=== PATIENT | female | born 2000 | race Native Hawaiian/Other Pacific Islander ===

== ENCOUNTER 2018-02-17 18:18 | Outpatient (CLI) | payer MEDICAID ==
[~2018-02-17] VITALS: Ht 160 cm; Wt 63.0 kg
[2018-02-17 18:45] VITALS: BP 110/65
[2018-02-17] MEDS ORDERED: LIDOCAINE 1% INJ 50 ML (XYLOCAINE) VIAL IJ ONE (19:45)
[2018-02-17] MEDS ORDERED: cefTRIAXone 1 GM (ROCEPHIN) VIAL IM NR (19:45)
[2018-02-17] MEDS ORDERED: LIDOCAINE 1% INJ 20 ML 20 ML VIAL ONE (19:53)
[2018-02-17] MEDS ORDERED: LIDOCAINE 1% INJ 20 ML 20 ML VIAL INJ ONE (20:00)
--- NOTE | 2018-02-18 19:20 | Physician Query-Final Dx ---
NEYDA JIMENEZ 02/18/18 1920: Clinic Account Progress/Dx Physician Query: Please give diagnosis Date of Service Feb 17, 2018 at 18:18 JESSIE COLLADO DO 02/18/18 2202: Clinic Account Progress/Dx DIAGNOSIS: Diagnosis 35 weeks Gestation Vaginal bleeding in UTI complicating in third trimester NEYDA JIMENEZ Feb 18, 2018 19:20 JESSIE COLLADO DO Feb 18, 2018 22:02
== END 2018-02-17 20:15 | disposition home or self-care (01) ==
LOC: WSo 18:18 → LDRP 18:20 → WSo 20:15
PROVIDERS: ATTEND Family Medicine
DX: O46.93 Antepartum hemorrhage, unspecified, third trimester (principal); O23.43 Unspecified infection of urinary tract in pregnancy, third trimester; Z3A.35 35 weeks gestation of pregnancy
CPT/HCPCS: 87088; 96372; 99213

== ENCOUNTER 2018-03-14 14:27 | Inpatient (IN) | payer MEDICAID ==
[~2018-03-14] VITALS: Ht 160 cm; Wt 64.0 kg
[2018-03-14] VITALS (14 sets, daily range): BP systolic 102–137; BP diastolic 58–81
[2018-03-14] MEDS ORDERED: MINERAL OIL CONCENTRATE 99.9% 15 ML UDC TOP PRN (15:15)
[2018-03-14 15:52] LABS: BASOPHILS % (AUTO) 0 % (0-10); EOSINOPHILS # (AUTO) 0.2 10^3/uL (0.0-0.3); EOSINOPHILS % (AUTO) 2 % (0-10); HEMATOCRIT 34 % (35-52); HEMOGLOBIN 11.3 G/DL (11.5-16.0); LYMPHOCYTES # (AUTO) 2.7 X 10^3 (1.0-4.0); LYMPHOCYTES % (AUTO) 27 % (12-44); MEAN CORPUSCULAR HEMOGLOBIN 27 PG (25-34); MEAN CORPUSCULAR HGB CONC 33 G/DL (32-36); MEAN CORPUSCULAR VOLUME 82 FL (80-99); MEAN PLATELET VOLUME 10.8 FL (7.4-10.4); MONOCYTES # (AUTO) 0.7 X 10^3 (0.0-1.0); MONOCYTES % (AUTO) 7 % (0-12); NEUTROPHILS # (AUTO) 6.4 X 10^3 (1.8-7.8); NEUTROPHILS % (AUTO) 63 % (42-75); PLATELET COUNT 207 10^3/uL (130-400); RED BLOOD COUNT 4.16 10^6/uL (4.35-5.85); RED CELL DISTRIBUTION WIDTH 13.3 % (10.0-14.5); WHITE BLOOD COUNT 10.1 10^3/uL (4.3-11.0)
[2018-03-14] MEDS ORDERED: BUTORPHANOL INJ 2 MG/ML (STADOL) VIAL IV ONE ×3 (16:00→20:45)
[2018-03-14] MEDS: D5 LR IV SOLUTION 1,000 ML IV SCH ×2 (16:07→23:28)
[2018-03-14] MEDS ORDERED: ONDANSETRON 4 MG/2 ML (SDV) Z0FRAN IVP PRN (16:45)
[2018-03-14] MEDS ORDERED: ONDANSETRON 4 MG/2 ML (SDV) Z0FRAN ONE (16:45)
[2018-03-14] MEDS ORDERED: BUTORPHANOL INJ 2 MG/ML (STADOL) VIAL ONE ×2 (18:11→20:43)
[2018-03-14] MEDS ORDERED: CATHETER FLUSH 10 ML SYR IV SCH (22:00)
[2018-03-14] MEDS ORDERED: OXYTOCIN/NORMAL SALINE 500 ML IV ONE (22:46)
[2018-03-14] MEDS ORDERED: LIDOCAINE 1% INJ 20 ML 20 ML VIAL ONE (22:46)
[2018-03-15] VITALS (10 sets, daily range): BP systolic 95–115; BP diastolic 51–77
[2018-03-15] MEDS ORDERED: MISOPROSTOL 100 MCG (CYTOTEC) TAB ONE (00:06)
[2018-03-15] MEDS ORDERED: OXYTOCIN/NORMAL SALINE 500 ML IV ONE (00:13)
[2018-03-15] MEDS ORDERED: OXYTOCIN/NORMAL SALINE 500 ML IV SCH (00:50)
--- NOTE | 2018-03-15 00:56 | History & Physical-OB ---
OB - Chief Complaint & HPI Date/Time Date of Admission: Date of Admission: Mar 14, 2018 at 3:32 pm Time Seen by Provider: 10:55 Chief Complaint/History OB-Reason for Admission/Chief: Onset of Labor Hx : 1 Expected Date of Delivery: Mar 19, 2018 Gestational Age in Weeks: 39 Gestational Age in Days: 2 History of Labs O+, HIV/HepB/RPR NR, Rub Imm, GBS neg, GC/chyl neg Allergies and Home Medications Allergies Coded Allergies: No Known Drug Allergies (Unverified , 02/17/18) Home Medications No Active Prescriptions or Reported Meds Patient Home Medication List Home Medication List Reviewed: Yes OB - History Hx of Present Care: Yes Ultrasounds: Normal mid trimester US Obstetrical Complications: None Medical Complications: None Information Induced Hypertension: No Maternal Gestational Diabetes: No Hemorrhage: No Obstetrical History Hx : 1 Delivery History Adverse Rxn to Tranfusion: No Patient Past Medical History None Social History/Family History HIV/AIDS: No Recent Infectious Disease Expo: No Sexually Transmitted Disease: No Alcohol Use: Denies Use Recreational Drug Use: No Smoking Cessation: Never smoker Immunizations Rubella: immune RPR/VDRL: Negative GBS Status: Negative HBsAG: Negative OB - Admission Exam Physical Exam Vitals: Vital Signs 03/14/18 03/14/18 03/14/18 19:05 20:49 21:35 Temp 97.1 Pulse 78 Resp 16 B/P (MAP) 137/65 (89) Pulse Ox 97 O2 Delivery Room Air Heart: Rhythm Normal Lungs: Clear Abdomen: Gravid Extremities: Normal Reflexes: Normal Cervical Dilatation: 10cm Effacement: 100% Station: +1 Membranes: Ruptured Amniotic Fluid: Clear Heart Rate: 140's Accelerations: Accelerations Present Decelerations: Early Decelerations Short Term Variability: Present Contractions on Admission: < 5 Minutes Apart Labs Laboratory Tests Test 03/14/18 13:52 Range/Units White Blood Count 10.1 4.3-11.0 10^3/uL Red Blood Count 4.16 L 4.35-5.85 10^6/uL Hemoglobin 11.3 L 11.5-16.0 G/DL Hematocrit 34 L 35-52 % Mean Corpuscular Volume 82 80-99 FL Mean Corpuscular Hemoglobin 27 25-34 PG Mean Corpuscular Hemoglobin Concent 33 32-36 G/DL Red Cell Distribution Width 13.3 10.0-14.5 % Platelet Count 207 130-400 10^3/uL Mean Platelet Volume 10.8 H 7.4-10.4 FL Neutrophils (%) (Auto) 63 42-75 % Lymphocytes (%) (Auto) 27 12-44 % Monocytes (%) (Auto) 7 0-12 % Eosinophils (%) (Auto) 2 0-10 % Basophils (%) (Auto) 0 0-10 % Neutrophils # (Auto) 6.4 1.8-7.8 X 10^3 Lymphocytes # (Auto) 2.7 1.0-4.0 X 10^3 Monocytes # (Auto) 0.7 0.0-1.0 X 10^3 Eosinophils # (Auto) 0.2 0.0-0.3 10^3/uL Basophils # (Auto) 0.0 0.0-0.1 10^3/uL OB - Assessment/Plan/Diagnosis Assessment Assessment: active labor Admission Dx Labor Admission Status: Inpatient Order (span 2 midnights) Reason for Inpatient Admission: labor Plan Plan: Expectant Management Other Plan 17 yo G1 @ 39.2 wga that presented to floor in active labor, GBS neg - Expectant management Copy Copies To 1: JESSICA HUSAIN MD, HOLLY R MD Mar 15, 2018 12:56 am
[2018-03-15] MEDS ORDERED: BENZOCAINE/MENTHOL (DERMOPLAST) 56 ML CAN TP PRN (01:00)
[2018-03-15] MEDS ORDERED: TETANUS,DIPTH,PERTUSS P/F (BOOSTRIX) 0.5 ML VIAL IM ONE (01:00)
[2018-03-15] MEDS ORDERED: WITCH HAZEL(TUCKS) 40 EA JAR TOP PRN (01:00)
--- NOTE | 2018-03-15 01:02 | OB Labor & Delivery Record ---
Vag Delivery Note Vag Delivery Note Date of Delivery: 03/15/18 Preoperative Diagnosis: Lucretia morse a (17 /Para 1 / , Gestational Age (wks)39.2 that presented in active labor Postoperative Diagnosis: Same Surgeon: JESSICA HUSAIN Animal Caretaker: Yesica Quinonez, MS4 Anesthesia: None Delivery Type: Findings: Normal @ 2357 Viable Male , apgars 9/9, weight 2855, 6#5 Lacerations: 2nd degree midline perineal lac and left labial Intact placenta with 3 vessel cord. No nuchal cord, body cord or shoulder dystocia Cytotec 800 mcg placed for hemorrhage prophylaxis Estimated Blood Loss: 300 ml Complications: None Condition: Stable Description of Procedure: The patient is a 17 yo G1 @ 39.2 wga who presented in active labor. She was admitted and informed consent was obtained. Her labor course was unremarkable. She progressed to complete dilatation and began to push. She was then set up for delivery. The 's head was delivered atraumatically in the YO position. The shoulders and remainder of the 's body were then delivered without difficulty. Nuchal cord reduced x 2 and had remaining 2 cords reduced after delivery. Upon delivery, the head was held below the level of the perineum and the mouth and nares were bulb suctioned. The cord was doubly clamped and cut by FOB and the was placed on maternal abdomen and attended to by pediatric staff. An intact placenta with 3- vessel cord delivered via Maia and there was found to be moderate bleeding and cytotec 800 mcg was placed rectally. Vigorous fundal massage was performed and the fundus was found to be firm. IV oxytocin was given. Examination of the vagina and perineum revealed a 2nd degree midline perineal laceration and left labial laceration repaired in the usual fashion with 3-0 Reped suture. Following the repair, sponge, instrument and needle counts were correct. Mom and baby were both in stable condition in the labor suite. Vitals - Labs Vital Signs - I&O Vital Signs Date Time Temp Pulse Resp B/P (MAP) Pulse Ox O2 Delivery O2 Flow Rate FiO2 03/14/18 21:35 78 137/65 (89) 97 Room Air 03/14/18 21:04 75 126/71 (89) 98 Room Air 03/14/18 20:49 97.1 03/14/18 20:30 85 106/67 (80) 100 Room Air 03/14/18 20:05 82 121/64 (83) 97 Room Air 03/14/18 19:35 70 108/62 (77) 97 Room Air 03/14/18 19:14 97.0 03/14/18 19:05 70 16 102/58 (73) 97 Room Air 03/14/18 19:00 70 102/58 (73) Room Air 03/14/18 18:00 Room Air 03/14/18 17:30 76 16 116/66 (83) 98 Room Air 03/14/18 17:00 72 120/81 (94) 99 Room Air 03/14/18 15:40 85 16 119/80 (93) Room Air 03/14/18 14:40 97.1 86 16 125/74 (91) Room Air I & O 03/15/18 07:00 Intake Total 1000 ml Balance 1000 ml Labs Laboratory Tests 03/14/18 13:52: White Blood Count 10.1, Red Blood Count 4.16L, Hemoglobin 11.3L, Hematocrit 34L , Mean Corpuscular Volume 82, Mean Corpuscular Hemoglobin 27, Mean Corpuscular Hemoglobin Concent 33, Red Cell Distribution Width 13.3, Platelet Count 207, Mean Platelet Volume 10.8H, Neutrophils (%) (Auto) 63, Lymphocytes (%) (Auto) 27 , Monocytes (%) (Auto) 7, Eosinophils (%) (Auto) 2, Basophils (%) (Auto) 0, Neutrophils # (Auto) 6.4, Lymphocytes # (Auto) 2.7, Monocytes # (Auto) 0.7, Eosinophils # (Auto) 0.2, Basophils # (Auto) 0.0 JESSICA HUSAIN MD Mar 15, 2018 1:02 am
[2018-03-15] MEDS ORDERED: IBUPROFEN 600 MG (MOTRIN) TAB PO ONE (01:42)
[2018-03-15] MEDS: IBUPROFEN 600 MG (MOTRIN) TAB PO SCH ×3 (01:44→15:53)
[2018-03-15] MEDS ORDERED: MISOPROSTOL 200 MCG (CYTOTEC) TABLET PO ONE (02:00)
[2018-03-15] MEDS ORDERED: CATHETER FLUSH 10 ML SYR IV SCH (06:00)
[2018-03-15] MEDS: PRENATAL VITAMIN 1 EA TAB PO SCH (07:42)
[2018-03-16 02:35] VITALS: BP 102/67
[2018-03-16] MEDS: IBUPROFEN 600 MG (MOTRIN) TAB PO SCH ×5 (02:43→23:27)
[2018-03-16 05:38] LABS: BASOPHILS % (AUTO) 0 % (0-10); EOSINOPHILS # (AUTO) 0.3 10^3/uL (0.0-0.3); EOSINOPHILS % (AUTO) 2 % (0-10); HEMATOCRIT 27 % (35-52); HEMOGLOBIN 8.5 G/DL (11.5-16.0); LYMPHOCYTES # (AUTO) 2.5 X 10^3 (1.0-4.0); LYMPHOCYTES % (AUTO) 17 % (12-44); MEAN CORPUSCULAR HEMOGLOBIN 27 PG (25-34); MEAN CORPUSCULAR HGB CONC 32 G/DL (32-36); MEAN CORPUSCULAR VOLUME 84 FL (80-99); MEAN PLATELET VOLUME 10.1 FL (7.4-10.4); MONOCYTES % (AUTO) 6 % (0-12); NEUTROPHILS # (AUTO) 11.2 X 10^3 (1.8-7.8); NEUTROPHILS % (AUTO) 75 % (42-75); PLATELET COUNT 203 10^3/uL (130-400); RED BLOOD COUNT 3.19 10^6/uL (4.35-5.85); RED CELL DISTRIBUTION WIDTH 13.3 % (10.0-14.5); WHITE BLOOD COUNT 14.9 10^3/uL (4.3-11.0)
[2018-03-16 09:30] VITALS: BP 120/74
[2018-03-16] MEDS: PRENATAL VITAMIN 1 EA TAB PO SCH (10:25)
[2018-03-16] MEDS: FERROUS SULF 325 MG (IRON) TAB PO SCH (10:29)
[2018-03-16 12:30] VITALS: BP 116/71
--- NOTE | 2018-03-16 16:17 | Progress Note (SOAP) ---
Subjective Subjective/Events-last exam Afebrile, no acute events. Denies dizziness, chest pain, shortness of breath. Bleeding is decreasing. Review of Systems Date Seen by Provider: Mar 16, 2018 Time Seen by Provider: 10:12 Objective Exam Last Set of Vital Signs Vital Signs Date Time Temp Pulse Resp B/P (MAP) Pulse Ox O2 Delivery O2 Flow Rate FiO2 03/16/18 09:30 99.2 105 18 120/74 (89) 99 Room Air Capillary Refill : General: Alert, No Acute Distress Lungs: Clear to Auscultation, Normal Air Movement Heart: Regular Rate, No Murmurs Abdomen: Other (fundus firm below umbilicus) Neuro: Normal Speech Psych/Mental Status: Mental Status NL Results/Procedures Lab Laboratory Tests 03/16/18 05:25: White Blood Count 14.9H, Red Blood Count 3.19L, Hemoglobin 8.5#L, Hematocrit 27L , Mean Corpuscular Volume 84, Mean Corpuscular Hemoglobin 27, Mean Corpuscular Hemoglobin Concent 32, Red Cell Distribution Width 13.3, Platelet Count 203, Mean Platelet Volume 10.1, Neutrophils (%) (Auto) 75, Lymphocytes (%) (Auto) 17 , Monocytes (%) (Auto) 6, Eosinophils (%) (Auto) 2, Basophils (%) (Auto) 0, Neutrophils # (Auto) 11.2H, Lymphocytes # (Auto) 2.5, Monocytes # (Auto) 1.0, Eosinophils # (Auto) 0.3, Basophils # (Auto) 0.0 Assessment/Plan Assessment/Plan (1) (spontaneous vaginal delivery) Status: Acute Assessment & Plan: Routine care, blood type O+, RI. (2) anemia Status: Acute Assessment & Plan: Start iron sulfate daily Clinical Quality Measures DVT/VTE Risk/Contraindication: Risk Factor Score Per Nursin RFS Level Per Nursing on Admit: 1=Low/No VTE PPX MINERVA GAO MD Mar 16, 2018 4:17 pm
[2018-03-16] MEDS ORDERED: IBUP-844 PO (16:19)
[2018-03-16] MEDS ORDERED: PNV1TABL67 PO (16:19)
[2018-03-16] MEDS ORDERED: FERR325T18 PO (16:19)
[2018-03-16 16:30] VITALS: BP 105/61
[2018-03-16 23:27] VITALS: BP 98/63
[2018-03-17 05:53] VITALS: BP 103/59
[2018-03-17] MEDS: IBUPROFEN 600 MG (MOTRIN) TAB PO SCH (05:53)
--- NOTE | 2018-03-17 07:52 | Discharge Summary ---
Diagnosis/Chief Complaint Date of Admission Mar 14, 2018 at 3:32 pm Date of Discharge March 17, 2018 Admission Diagnosis Admission Diagnosis Active labor at full term Term intrauterine at 39 weeks O+ blood type Rubella immune Discharge Diagnosis s/p spontaneous vaginal delivery with second degree perineal laceration repair asymptomatic anemia Blood type O+ Rubella immune Chief Complaint/HPI Chief Complaint/HPI 17 yo G1 presented with contractions, found to be in active labor. Discharge Summary-Simple/Stand Procedures Spontaneous vaginal delivery with second degree laceration repair Discharge Physical Examination Allergies: Coded Allergies: No Known Drug Allergies (Unverified , 02/17/18) Vitals & I&Os Vital Sign - Last 12Hours Date Time Temp Pulse Resp B/P (MAP) Pulse Ox O2 Delivery O2 Flow Rate FiO2 03/17/18 05:53 98.1 100 18 103/59 (74) 98 Room Air General Appearance: Alert, No Acute Distress Respiratory: Clear to Auscultation, Normal Air Movement Cardiovascular: No Murmurs, Other (tachycardia) Extremities: No Edema Neuro: Normal Speech Psych/Mental Status: Mental Status NL Hospital Course See final discharge diagnosis. Labs Laboratory Tests Test 03/16/18 05:25 Range/Units White Blood Count 14.9 H 4.3-11.0 10^3/uL Red Blood Count 3.19 L 4.35-5.85 10^6/uL Hemoglobin 8.5 #L 11.5-16.0 G/DL Hematocrit 27 L 35-52 % Mean Corpuscular Volume 84 80-99 FL Mean Corpuscular Hemoglobin 27 25-34 PG Mean Corpuscular Hemoglobin Concent 32 32-36 G/DL Red Cell Distribution Width 13.3 10.0-14.5 % Platelet Count 203 130-400 10^3/uL Mean Platelet Volume 10.1 7.4-10.4 FL Neutrophils (%) (Auto) 75 42-75 % Lymphocytes (%) (Auto) 17 12-44 % Monocytes (%) (Auto) 6 0-12 % Eosinophils (%) (Auto) 2 0-10 % Basophils (%) (Auto) 0 0-10 % Neutrophils # (Auto) 11.2 H 1.8-7.8 X 10^3 Lymphocytes # (Auto) 2.5 1.0-4.0 X 10^3 Monocytes # (Auto) 1.0 0.0-1.0 X 10^3 Eosinophils # (Auto) 0.3 0.0-0.3 10^3/uL Basophils # (Auto) 0.0 0.0-0.1 10^3/uL Discharge Instructions to patient/family Please see electronic discharge instructions given to patient. Discharge Medications Reviewed and agree with Discharge Medication list on patient's Discharge Instruction sheet Clinical Quality Measures DVT/VTE Risk/Contraindication: Risk Factor Score Per Nursin RFS Level Per Nursing on Admit: 1=Low/No VTE PPX Copy Copies To 1: JESSICA HUSAIN MD, BETHANY N MD Mar 17, 2018 7:52 am
[2018-03-17] MEDS: FERROUS SULF 325 MG (IRON) TAB PO SCH (08:20)
[2018-03-17] MEDS: PRENATAL VITAMIN 1 EA TAB PO SCH (08:20)
--- NOTE | 2018-03-17 10:54 | Discharge Instructions ---
Discharge Inst-Women's Serv Depart Medications New, Converted or Re-Newed RX: Transmitted to Pharmacy New Medications: Ferrous Sulfate (Ferrous Sulfate) 325 Mg Tablet 325 MG PO DAILY@0700, #30 TAB 0 Refills Ibuprofen (Ibu) 600 Mg Tablet 600 MG PO Q6H PRN for PAIN-MILD TO MODERATE, #60 TAB 0 Refills Pnv with Ca,No.72/Iron/FA (Pnv Plus Multivit Tab) 1 Each Tablet 1 EA PO DAILY@0700, #30 TAB 11 Refills Follow Up/Instructions Goal/Follow Up: Follow up with Dr. Kitchen in 6 weeks for visit. Activity Activity: Activity as Tolerated (avoid strenuous activity x 6 weeks) Driving Instructions: You May Drive Nothing Inside Vagina: No Douching, No [place], No Tampons Diet Discharge Diet: No Restrictions Symptoms to Report to : Swelling Increased, Fever Over 101 Degrees F, Pain/ Pressure in Chest, Vaginal Bleeding Increase, Cramps in Feet or Legs, Vaginal Discharge Foul, Dizziness/Fainting, Shortness of Breath For Any Problems or Questions: Contact Your Physician Copies To 1: JESSICA KITCHEN MD,MINERVA Bassett MD Mar 16, 2018 4:20 pm
== END 2018-03-17 14:45 | disposition home or self-care (01) | DRG 775 ==
LOC: LDRP 14:27 → WSo 14:27 → LDRP 15:32
PROVIDERS: ADMIT Family Medicine; ATTEND Family Medicine
PROC: 10E0XZZ Delivery of Products of Conception, External Approach (ICD-10-PCS; principal; 2018-03-15)
PROC: 0KQM0ZZ Repair Perineum Muscle, Open Approach (ICD-10-PCS; 2018-03-15)
DX: O70.1 Second degree perineal laceration during delivery (principal); O69.81X0 Labor and delivery complicated by cord around neck, without compression, not applicable or unspecified; O90.81 Anemia of the puerperium; D64.9 Anemia, unspecified; Z37.0 Single live birth; Z3A.39 39 weeks gestation of pregnancy
CPT/HCPCS: 36415; 85025; 86850; 86900; 86901; 99212